=== PATIENT | male | born 1965 | race African-American/Black ===

== ENCOUNTER 2018-01-21 05:49 | Emergency (ER) | payer SELFPAY ==
[~2018-01-21] VITALS: Ht 188 cm; Wt 96.0 kg
[2018-01-21] MEDS ORDERED: DEXAMETHASONE 10 MG/ML VIAL IM ONE (07:00)
[2018-01-21] MEDS ORDERED: FAMOTIDINE 20MG TABLET PO ONE (07:00)
[2018-01-21] MEDS ORDERED: DIPHENHYDRAMINE 25MG CAPSULE PO ONE (07:00)
[2018-01-21 08:38] VITALS: BP 122/78
== END 2018-01-21 09:09 | disposition home or self-care (01) ==
LOC: ER 05:49
DX: T78.49XA Other allergy, initial encounter (principal); R21 Rash and other nonspecific skin eruption; J45.909 Unspecified asthma, uncomplicated; Z91.09 Other allergy status, other than to drugs and biological substances; Z88.9 Allergy status to unspecified drugs, medicaments and biological substances; Z88.8 Allergy status to other drugs, medicaments and biological substances; X58.XXXA Exposure to other specified factors, initial encounter
CPT/HCPCS: 96372; 99283; J1100; Q0163

== ENCOUNTER 2018-01-30 03:49 | Emergency (ER) | payer SELFPAY ==
[~2018-01-30] VITALS: Ht 190.5 cm; Wt 100.0 kg
[2018-01-30] MEDS ORDERED: DIPHENHYDRAMINE 25MG CAPSULE PO ONE (04:45)
[2018-01-30] MEDS ORDERED: FAMOTIDINE 20MG TABLET PO ONE (04:45)
[2018-01-30] MEDS ORDERED: METHYLPREDNISOLONE SOD SUCC 125 MG/2 ML VIAL IM ONE (04:45)
[2018-01-30 05:50] VITALS: BP 124/88
== END 2018-01-30 06:32 | disposition home or self-care (01) ==
LOC: ER 03:49
DX: L30.9 Dermatitis, unspecified (principal); J45.909 Unspecified asthma, uncomplicated; Z91.09 Other allergy status, other than to drugs and biological substances; Z88.8 Allergy status to other drugs, medicaments and biological substances
CPT/HCPCS: 96372; 99283; J2930; Q0163

== ENCOUNTER 2018-04-06 03:54 | Emergency (ER) | payer SELFPAY ==
[~2018-04-06] VITALS: Ht 190.5 cm; Wt 96.0 kg
[2018-04-06] MEDS ORDERED: DIPHENHYDRAMINE 25MG CAPSULE PO ONE (06:15)
[2018-04-06] MEDS ORDERED: DEXAMETHASONE 10 MG/ML VIAL IM ONE (06:15)
[2018-04-06 06:37] VITALS: BP 138/77
== END 2018-04-06 07:05 | disposition home or self-care (01) ==
LOC: ER 03:54
DX: L30.9 Dermatitis, unspecified (principal); J45.909 Unspecified asthma, uncomplicated; Z88.8 Allergy status to other drugs, medicaments and biological substances
CPT/HCPCS: 96372; 99283; J1100; Q0163

== ENCOUNTER 2021-06-23 04:29 | Emergency (ER) | payer BC ==
[~2021-06-23] VITALS: Ht 188 cm; Wt 109.0 kg
[2021-06-23 05:00] VITALS: BP 136/82
[2021-06-23] MEDS ORDERED: HYDROCODONE/ACETAMINOPHEN 5/325MG TABLET PO STA (05:51)
[2021-06-23] MEDS ORDERED: ONDANSETRON 4MG ODT PO STA (05:51)
[2021-06-23 06:25] LABS: HEMATOCRIT. 50.7 % (42.0-52.0); HEMOGLOBIN. 16.8 g/dL (14.0-18.0); MEAN CORPUSCULAR VOLUME 84.6 fL (80.0-94.0); MEAN PLATELET VOLUME 8.9 fl (7.4-10.4); PLATELET 166 x1000/uL (130-400); RED BLOOD CELL COUNT 5.99 mill/uL (4.7-6.1); RED CELL DISTRIBUTION WIDTH 14.2 % (11.6-14.6)
[2021-06-23 06:26] LABS: CHLORIDE 105 mEq/L (98-107)
[2021-06-23] MEDS ORDERED: TOPUD PO (07:00)
[2021-06-23 08:54] LABS: PLATELET ESTIMATE NORMAL
== END 2021-06-23 08:56 | disposition home or self-care (01) ==
LOC: ER 04:29
DX: U07.1 COVID-19 (principal); J45.909 Unspecified asthma, uncomplicated; Z88.8 Allergy status to other drugs, medicaments and biological substances
CPT/HCPCS: 36415; 80053; 83690; 85025; 87426; 99283; Q0162

== ENCOUNTER 2022-11-09 14:03 | Emergency (ER) | payer BC, MEDICAID ==
[~2022-11-09] VITALS: Ht 188 cm; Wt 98.0 kg
[~2022-11-09 14:03] MED LIST: TOPUD PO
[2022-11-09] MEDS ORDERED: EPIN0.3P3 IM (14:57)
[2022-11-09] MEDS ORDERED: TC1U15 TP (14:57)
[2022-11-09] MEDS ORDERED: CETI-338 PO (14:57)
[2022-11-09] MEDS ORDERED: P20 MT (14:57)
[2022-11-09] MEDS ORDERED: FAMOTIDINE 20MG TABLET PO SCH (15:00)
[2022-11-09] MEDS ORDERED: PREDNISONE 20MG TABLET PO ONE (15:00)
[2022-11-09] MEDS ORDERED: DIPHENHYDRAMINE 50MG CAPSULE PO ONE (15:00)
[2022-11-09 15:42] VITALS: BP 168/97
== END 2022-11-09 15:43 | disposition home or self-care (01) ==
LOC: ER 14:03
DX: L30.9 Dermatitis, unspecified (principal); G89.29 Other chronic pain; J45.909 Unspecified asthma, uncomplicated; I10 Essential (primary) hypertension; Z79.899 Other long term (current) drug therapy
CPT/HCPCS: 99284; J7512; Q0163

== ENCOUNTER 2023-02-20 03:09 | Emergency (ER) | payer MEDICAID ==
[~2023-02-20] VITALS: Ht 188 cm; Wt 110.0 kg
[~2023-02-20 03:09] MED LIST changes: +CETI-338 PO; +EPIN0.3P3 IM; +P20 MT; +TC1U15 TP
[2023-02-20 03:22] VITALS: O2SAT 100
[2023-02-20 06:00] VITALS: BP 122/81; PULSE 84; RESP 20; TEMP 98.4
== END 2023-02-20 06:05 | disposition home or self-care (01) ==
LOC: ER 03:09
DX: M70.31 Other bursitis of elbow, right elbow (principal); J45.909 Unspecified asthma, uncomplicated; I10 Essential (primary) hypertension; Z91.018 Allergy to other foods; Z91.048 Other nonmedicinal substance allergy status; Z88.1 Allergy status to other antibiotic agents; Y93.89 Activity, other specified
CPT/HCPCS: 99281

== ENCOUNTER 2023-11-01 07:56 | Emergency (ER) | payer MEDICAID ==
[~2023-11-01] VITALS: Ht 188 cm; Wt 100.0 kg
[~2023-11-01 07:56] MED LIST changes: -CETI-338 PO; +CETI-341 PO
[2023-11-01 08:01] VITALS: O2SAT 100
[2023-11-01] MEDS ORDERED: FLUT30CR TP (09:04)
[2023-11-01] MEDS ORDERED: ACETAMINOPHEN 325MG TABLET PO ONE (09:15)
[2023-11-01] MEDS ORDERED: TRIA15OI8 TP (09:16)
[2023-11-01 09:26] VITALS: BP 189/113; PULSE 89; RESP 16; TEMP 98.6
== END 2023-11-01 09:31 | disposition home or self-care (01) ==
LOC: ER 07:56
DX: L30.9 Dermatitis, unspecified (principal); I10 Essential (primary) hypertension
CPT/HCPCS: 99281

== ENCOUNTER 2024-05-17 02:22 | Emergency (ER) | payer MEDICAID ==
[~2024-05-17] VITALS: Ht 188 cm; Wt 94.7 kg
[~2024-05-17 02:22] MED LIST changes: +TRIA15OI8 TP
[2024-05-17 02:35] VITALS: O2SAT 99
[2024-05-17 04:25] VITALS: BP 126/93; PULSE 100; RESP 19; TEMP 36.61404; O2SAT 99
== END 2024-05-17 04:29 | disposition home or self-care (01) ==
LOC: ER 02:22
DX: B34.9 Viral infection, unspecified (principal); I10 Essential (primary) hypertension; Z79.899 Other long term (current) drug therapy; Z91.09 Other allergy status, other than to drugs and biological substances; Z88.8 Allergy status to other drugs, medicaments and biological substances; Z91.048 Other nonmedicinal substance allergy status; Z91.013 Allergy to seafood
CPT/HCPCS: 99281

== ENCOUNTER 2024-06-17 14:23 | Inpatient (IN) | payer OTHER, MEDICAID ==
[~2024-06-17] VITALS: Ht 188 cm; Wt 92.1 kg
[2024-06-17 14:26] VITALS: O2SAT 95
[2024-06-17] MEDS: SODIUM CHLORIDE 0.9% 1,000 ML IV ONE ×2 (14:45→15:08)
[2024-06-17 15:16] LABS: BASOPHILS % 0.5 % (0.0-2.0); CHLORIDE 108 mEq/L (98-107); EOSINOPHILS % 5.3 % (0.0-5.0); HEMATOCRIT. 49.4 % (42.0-52.0); HEMOGLOBIN. 16.1 g/dL (14.0-18.0); LYMPHOCYTES % 16.6 % (20.0-50.0); MEAN CORPUSCULAR HEMOGLOBIN 29.1 pg (28.0-32.0); MEAN CORPUSCULAR HGB CONC 32.6 g/dL (31.0-37.0); MEAN CORPUSCULAR VOLUME 89.3 fL (80.0-94.0); MEAN PLATELET VOLUME 8.5 fl (7.4-10.4); MONOCYTES % 11.9 % (2.0-8.0); NEUTROPHILS % 65.7 % (40.0-76.0); PLATELET 230 x1000/uL (130-400); POTASSIUM 3.9 mEq/L (3.5-5.1); RED BLOOD CELL COUNT 5.53 mill/uL (4.7-6.1); SODIUM 142 mEq/L (136-145)
[2024-06-17 15:17] LABS: CARBON DIOXIDE 22 mEq/L (21-32)
[2024-06-17 15:18] LABS: CALCIUM 9.3 mg/dL (8.7-10.4)
[2024-06-17 15:21] LABS: UREA NITROGEN BLOOD 8 mg/dL (9-23)
[2024-06-17 15:22] LABS: CREATININE 1.3 mg/dL (0.6-1.3); GLUCOSE 154 mg/dL (70-105)
[2024-06-17 15:23] LABS: ETHANOL BLOOD 248 mg/dL (<10)
[2024-06-17 15:24] LABS: ACETAMINOPHEN < 2 ug/mL (10-30); ALANINE AMINOTRANSFERASE 19 IU/L (10-49); ALBUMIN 4.2 g/dL (3.2-4.8); ASPARTATE AMINOTRANSFERASE 27 IU/L (<34); BILIRUBIN DIRECT 0.1 mg/dL (<=3.0)
[2024-06-17 15:25] LABS: BILIRUBIN TOTAL 0.5 mg/dL (0.1-1.0); PROTEIN TOTAL 7.2 g/dL (6.0-8.3)
[2024-06-17 18:45] LABS: CLARITY URINE CLEAR (CLEAR); COLOR URINE YELLOW (YELLOW); GLUCOSE URINE NEGATIVE (NEGATIVE); KETONES URINE NEGATIVE (NEGATIVE); LEUKOCYTE ESTERASE URINE NEGATIVE (NEGATIVE); NITRITE URINE NEGATIVE (NEGATIVE); OCCULT BLOOD URINE NEGATIVE (NEGATIVE); PH URINE 5.5 (4.5-8.0); PROTEIN URINE NEGATIVE (NEGATIVE); SPECIFIC GRAVITY URINE 1.006 (1.005-1.030); UROBILINOGEN URINE 0.2 E.U./dL (0.2-1.0)
[2024-06-17 19:10] LABS: *AMPHETAMINES SCREEN URINE NEGATIVE (NEGATIVE); *BARBITURATES SCREEN URINE NEGATIVE (NEGATIVE); *BENZODIAZEPINES SCREEN URINE NEGATIVE (NEGATIVE); *COCAINE SCREEN URINE NEGATIVE (NEGATIVE); CANNABINOID URINE SCREEN NEGATIVE (NEGATIVE); METHADONE URINE SCREEN NEGATIVE (NEGATIVE); OPIATES URINE SCREEN NEGATIVE (NEGATIVE); PHENCYCLIDINE URINE SCREEN NEGATIVE (NEGATIVE)
[2024-06-17 19:11] LABS: ECSTASY MDMA SCREEN URINE NEGATIVE (NEGATIVE)
[2024-06-17] MEDS: SODIUM CHLORIDE 0.9% 1,000 ML IV SCH (21:00)
[2024-06-17] MEDS ORDERED: HYDROCODONE/ACETAMINOPHEN 5/325MG TABLET PO PRN (21:00)
[2024-06-17] MEDS ORDERED: CLONIDINE 0.1MG TABLET PO PRN (21:00)
[2024-06-17] MEDS ORDERED: ONDANSETRON HCL 4MG/2ML INJ IV PRN (21:00)
[2024-06-17] MEDS ORDERED: LORAZEPAM 2MG/ML INJ IV PRN (21:00)
[2024-06-17 21:06] LABS: CHLORIDE 115 mEq/L (98-107); POTASSIUM 3.7 mEq/L (3.5-5.1); SODIUM 149 mEq/L (136-145)
[2024-06-17 21:07] LABS: CARBON DIOXIDE 22 mEq/L (21-32)
[2024-06-17 21:08] LABS: CALCIUM 8.6 mg/dL (8.7-10.4)
[2024-06-17 21:12] LABS: GLUCOSE 89 mg/dL (70-105)
[2024-06-17 21:13] LABS: UREA NITROGEN BLOOD 6 mg/dL (9-23)
[2024-06-17 21:14] LABS: ACETAMINOPHEN < 2 ug/mL (10-30); ALANINE AMINOTRANSFERASE 17 IU/L (10-49); ALBUMIN 3.9 g/dL (3.2-4.8); ASPARTATE AMINOTRANSFERASE 24 IU/L (<34)
[2024-06-17 21:15] LABS: BILIRUBIN TOTAL 0.3 mg/dL (0.1-1.0); PROTEIN TOTAL 7.2 g/dL (6.0-8.3)
[2024-06-17 23:30] VITALS: BP 164/82; PULSE 84; RESP 20; TEMP 36.3068
[2024-06-18] MEDS: MVI, ADULT NO.1 10 ML, FOLIC ACID 1 MG, THIAMINE HCL 100 MG in SODIUM CHLORIDE 0.9% 1,0... IV SCH (05:00)
[2024-06-18 08:36] LABS: BASOPHILS % 0.3 % (0.0-2.0); EOSINOPHILS % 4.3 % (0.0-5.0); HEMATOCRIT. 50.1 % (42.0-52.0); HEMOGLOBIN. 16.1 g/dL (14.0-18.0); LYMPHOCYTES % 12.1 % (20.0-50.0); MEAN CORPUSCULAR HEMOGLOBIN 28.6 pg (28.0-32.0); MEAN CORPUSCULAR HGB CONC 32.2 g/dL (31.0-37.0); MEAN PLATELET VOLUME 8.5 fl (7.4-10.4); NEUTROPHILS % 70.3 % (40.0-76.0); PLATELET 245 x1000/uL (130-400); RED BLOOD CELL COUNT 5.64 mill/uL (4.7-6.1); RED CELL DISTRIBUTION WIDTH 14.2 % (11.6-14.6); WHITE BLOOD COUNT 7.8 x1000/uL (4.5-11.0)
[2024-06-18] MEDS: PANTOPRAZOLE SODIUM 40 MG/VIAL IV SCH (09:00)
[2024-06-18] MEDS: ENOXAPARIN 40MG/0.4ML SYR SUBCUT SCH (09:00)
[2024-06-18 09:59] LABS: CARBON DIOXIDE 20 mEq/L (21-32); CHLORIDE 110 mEq/L (98-107); POTASSIUM 4.1 mEq/L (3.5-5.1); SODIUM 145 mEq/L (136-145)
[2024-06-18 10:01] LABS: CALCIUM 9.1 mg/dL (8.7-10.4); CREATINE KINASE MB FRACTION 0.5 ng/mL (0.5-3.6)
[2024-06-18 10:05] LABS: CREATINE KINASE 44 IU/L (46-171); CREATININE 0.9 mg/dL (0.6-1.3); GLUCOSE 71 mg/dL (70-105); UREA NITROGEN BLOOD 7 mg/dL (9-23)
[2024-06-18 10:26] LABS: TROPONIN I HIGH SENSITIVITY < 4 ng/L (3.0-53)
[2024-06-19] MEDS ORDERED: NALOXONE HCL 0.4MG/ML VIAL IV PRN (10:45)
[2024-06-19 11:32] LABS: BASOPHILS % 0.3 % (0.0-2.0); EOSINOPHILS % 11.2 % (0.0-5.0); HEMATOCRIT. 49.9 % (42.0-52.0); HEMOGLOBIN. 15.8 g/dL (14.0-18.0); LYMPHOCYTES % 19.7 % (20.0-50.0); MEAN CORPUSCULAR HEMOGLOBIN 28.2 pg (28.0-32.0); MEAN CORPUSCULAR HGB CONC 31.7 g/dL (31.0-37.0); MEAN PLATELET VOLUME 8.6 fl (7.4-10.4); MONOCYTES % 12.5 % (2.0-8.0); NEUTROPHILS % 56.3 % (40.0-76.0); PLATELET 248 x1000/uL (130-400); RED BLOOD CELL COUNT 5.61 mill/uL (4.7-6.1); RED CELL DISTRIBUTION WIDTH 14.3 % (11.6-14.6); WHITE BLOOD COUNT 7.6 x1000/uL (4.5-11.0)
[2024-06-19 11:48] LABS: CHLORIDE 107 mEq/L (98-107); POTASSIUM 3.8 mEq/L (3.5-5.1); SODIUM 141 mEq/L (136-145)
[2024-06-19 11:50] LABS: CALCIUM 9.5 mg/dL (8.7-10.4); CARBON DIOXIDE 22 mEq/L (21-32)
[2024-06-19 11:54] LABS: CREATININE 1.1 mg/dL (0.6-1.3)
[2024-06-19 11:55] LABS: GLUCOSE 143 mg/dL (70-105); UREA NITROGEN BLOOD 8 mg/dL (9-23)
[2024-06-19] MEDS: SERTRALINE HCL 25MG TABLET PO SCH (12:13)
[2024-06-19] MEDS: MVI, ADULT NO.1 10 ML, FOLIC ACID 1 MG, THIAMINE HCL 100 MG in SODIUM CHLORIDE 0.9% 1,0... IV SCH (12:17)
[2024-06-19 16:26] VITALS: BP 159/99; PULSE 88; RESP 18; TEMP 36.83628; O2SAT 98
[2024-06-19 20:00] VITALS: BP 154/81; PULSE 87; RESP 18; TEMP 36.50292; O2SAT 98
[2024-06-19] MEDS: ZOLPIDEM TARTRATE 5MG TABLET PO PRN (23:03)
[2024-06-20] VITALS: BP 158/87; PULSE 83; RESP 16; TEMP 36.83628; O2SAT 95
[2024-06-20 06:00] VITALS: BP 166/87; PULSE 96; RESP 16; TEMP 36.6696; O2SAT 96
[2024-06-20 06:11] LABS: BASOPHILS % 0.4 % (0.0-2.0); EOSINOPHILS % 10.2 % (0.0-5.0); HEMATOCRIT. 45.8 % (42.0-52.0); HEMOGLOBIN. 15.1 g/dL (14.0-18.0); LYMPHOCYTES % 19.7 % (20.0-50.0); MEAN CORPUSCULAR HEMOGLOBIN 29.1 pg (28.0-32.0); MEAN CORPUSCULAR VOLUME 88.1 fL (80.0-94.0); MEAN PLATELET VOLUME 8.5 fl (7.4-10.4); MONOCYTES % 13.5 % (2.0-8.0); NEUTROPHILS % 56.2 % (40.0-76.0); PLATELET 212 x1000/uL (130-400); RED CELL DISTRIBUTION WIDTH 14.2 % (11.6-14.6); WHITE BLOOD COUNT 5.6 x1000/uL (4.5-11.0)
[2024-06-20 06:24] LABS: CHLORIDE 109 mEq/L (98-107); POTASSIUM 3.6 mEq/L (3.5-5.1); SODIUM 142 mEq/L (136-145)
[2024-06-20 06:25] LABS: CARBON DIOXIDE 25 mEq/L (21-32)
[2024-06-20 06:26] LABS: CALCIUM 8.8 mg/dL (8.7-10.4)
[2024-06-20 06:31] LABS: CREATININE 0.9 mg/dL (0.6-1.3); GLUCOSE 112 mg/dL (70-105); UREA NITROGEN BLOOD 8 mg/dL (9-23)
[2024-06-20 06:50] VITALS: BP 145/85
[2024-06-20 12:00] VITALS: BP 145/91; PULSE 93; RESP 20; TEMP 36.61404; O2SAT 96
[2024-06-20 16:00] VITALS: BP 145/90; PULSE 103; RESP 20; TEMP 37.00296; O2SAT 97
[2024-06-20 19:30] VITALS: BP 150/67; PULSE 92; RESP 18; TEMP 36.55848; O2SAT 99
[2024-06-21 04:00] VITALS: BP 135/67; PULSE 86; RESP 18; TEMP 36.6696; O2SAT 100
[2024-06-21 08:00] VITALS: BP 140/74; PULSE 82; RESP 19; TEMP 36.3918; O2SAT 98
[2024-06-21 16:00] VITALS: BP 160/80; PULSE 81; RESP 20; TEMP 36.78072; O2SAT 98
[2024-06-21 20:00] VITALS: BP 150/84; PULSE 85; RESP 19; TEMP 36.6696; O2SAT 96
[2024-06-21] MEDS: TRAZODONE HCL 50MG TABLET PO SCH (22:01)
[2024-06-22 04:00] VITALS: BP 151/84; PULSE 84; RESP 18; TEMP 36.3918; TEMP 36.39180; O2SAT 97
== END 2024-06-22 19:00 | DRG 918 ==
LOC: ER 14:32 → 5WST 19:02 → EDBEDREQTM 19:03 → EDBEDREQ 19:03 → 5WST 06-19 10:28
PROVIDERS: ADMIT Internal Medicine; ATTEND Internal Medicine
PROC: GZ56ZZZ Individual Psychotherapy, Supportive (ICD-10-PCS; principal; 2024-06-21)
DX: T39.312A Poisoning by propionic acid derivatives, intentional self-harm, initial encounter (principal); F32.9 Major depressive disorder, single episode, unspecified; I10 Essential (primary) hypertension; Z20.822 Contact with and (suspected) exposure to COVID-19; Z56.0 Unemployment, unspecified; Z91.013 Allergy to seafood; Y92.89 Other specified places as the place of occurrence of the external cause; Z88.8 Allergy status to other drugs, medicaments and biological substances; Z91.018 Allergy to other foods
CPT/HCPCS: 36415; 80048; 80053; 80076; 80305; 80307; 80320; 80329; 81003; 82550; 82553; 84484; 85025; 87426; 93005; 93970; 99285; A4606; A4663; J1650; J2470; J3411; J3490; J7030; G0480